=== PATIENT | female | born 1995 | race Caucasian/White ===

== ENCOUNTER → 2020-09-22 | Outpatient (REF) ==
--- NOTE | 2020-09-22 14:31 | REP ---
INDICATION: DIFFICULTY BREATHING COMPARISON: None. TECHNIQUE: PA and lateral. FINDINGS: The mediastinum and cardiac silhouette are normal. The lung bradshaw are clear and without acute consolidation, effusion, or pneumothorax. The skeletal structures are intact and normal. IMPRESSION: No acute cardiopulmonary process. <Electronically signed by Mateusz Araujo > 09/22/20 [id number]
--- NOTE | 2020-09-22 14:33 | REP ---
INDICATION: DIFFICULTY BREATHING COMPARISON: None. TECHNIQUE: Mckeon and bilateral lateral views of the nasal bones. FINDINGS: Nasal septum is midline. Nasal bones appear intact without acute fracture or dislocation. Overlying soft tissues are grossly unremarkable. Visualized sinuses are clear. IMPRESSION: Normal appearance of the nasal bone, nasal septum and sinuses. <Electronically signed by Mateusz Araujo > 09/22/20 [id number]
== END ==
LOC: M PLAIMG 13:47
PROVIDERS: ATTEND Internal Medicine
DX: Z00.00 Encounter for general adult medical examination without abnormal findings (principal)